=== PATIENT | female | born 1955 | race Caucasian/White ===

== ENCOUNTER 2019-04-15 16:33 | Emergency (ER) | payer BC, OTHER ==
[~2019-04-15] VITALS: Ht 167.6 cm; Wt 61.7 kg
[2019-04-15] MEDS ORDERED: PREMARIN1.25 MG (17:19)
[2019-04-15] MEDS ORDERED: LEVOTHYROXINE50 MCG (17:20)
[2019-04-15] MEDS ORDERED: LISINOPRIL20 MG (17:20)
[2019-04-15] MEDS ORDERED: WELLBUTRIN XL300 MG PO (17:20)
[2019-04-15] MEDS ORDERED: OMEPRAZOLE40 MG (17:21)
[2019-04-15] MEDS ORDERED: MELOXICAM15 MG (17:21)
== END 2019-04-15 18:14 | disposition home or self-care (01) ==
LOC: ER 16:33
DX: S00.03XA Contusion of scalp, initial encounter (principal); S13.8XXA Sprain of joints and ligaments of other parts of neck, initial encounter; M54.2 Cervicalgia; W20.8XXA Other cause of strike by thrown, projected or falling object, initial encounter; Y93.89 Activity, other specified; Y92.89 Other specified places as the place of occurrence of the external cause; Y99.8 Other external cause status